=== PATIENT | female | born 1990 | race Caucasian/White ===

== ENCOUNTER 2016-09-29 09:55 | Emergency (ER) | payer OTHER ==
[2016-09-29] MEDS ORDERED: ONDANSETRON 4MG/2ML VIAL (J2405) As Ordered ONE (11:16)
[2016-09-29 11:26] LABS: CONTROL LINE HCG INT CTR LINE PRESENT
[2016-09-29 11:36] LABS: MEAN CORPUSCULAR HEMOGLOBIN 21.3 pg (27.0-33.0); MEAN CORPUSCULAR HGB CONC 29.6 g/dl (32.0-36.5); PLATELET COUNT, AUTOMATED 146 k/mm3 (150-450); RED CELL DISTRIBUTION WIDTH 15.3 % (11.5-14.5)
[2016-09-29 11:42] LABS: ALBUMIN 3.6 GM/DL (3.2-5.2); ALBUMIN/GLOBULIN RATIO 1.06 (1.00-1.93); ALKALINE PHOSPHATASE 121 U/L (45-117); ALT/SGPT 23 U/L (12-78); AMYLASE 23 U/L (25-115); ANION GAP 8 MEQ/L (8-16); AST/SGOT 17 U/L (15-37); BILIRUBIN,DIRECT < 0.1 MG/DL (0.0-0.2); BILIRUBIN,TOTAL 0.4 MG/DL (0.2-1.0); BLOOD UREA NITROGEN 13 MG/DL (7-18); CALCIUM LEVEL 8.4 MG/DL (8.5-10.1); CARBON DIOXIDE LEVEL 25 MEQ/L (21-32); CHLORIDE LEVEL 109 MEQ/L (98-107); CREATININE FOR GFR 0.54 MG/DL (0.55-1.02); GLOMERULAR FILTRATION RATE > 60.0 (>60); GLUCOSE, FASTING 72 MG/DL (70-105); SODIUM LEVEL 142 MEQ/L (136-145)
--- NOTE | 2016-09-29 11:54 | REP ---
CT Head without contrast HISTORY: Trauma COMPARISON: None There is no intraparenchymal hemorrhage, acute infarct, mass or midline shift. The ventricular system is normal in appearance. There is no extra cerebral collection. There is no fracture. The visualized sinuses are clear. IMPRESSION: There is no intracranial lesion. Signed by Abdifatah Car MD 09/29/2016 11:46 A
[2016-09-29 12:20] LABS: BASOPHILS 2 % (0-4); HYPOCHROMASIA 3+; MICROCYTOSIS 2+
[2016-09-29 12:21] LABS: OVALOCYTES 1+
--- NOTE | 2016-09-29 15:02 | EDDOCDS ---
Physician Documentation [facility] Name: Baylee Rodriguez Age: 26 yrs Sex: Female : 1990 Arrival Date: 09/29/2016 Time: 09:55 Bed 12 Private MD: Addison [facility] [place] Disposition: 09/29/16 14:17 Discharged to Home/Self Care. Impression: Syncope and collapse - POTS syndrome. - Condition is Stable. - Discharge Instructions: Syncope. - Medication Reconciliation, Local Pharmacy Hours form. - Follow up: Guido Richards MD; When: Call to arrange an appointment. Follow up: Nigel Azevedo; When: Call to arrange an appointment. - Problem is an acute exacerbation. - Symptoms are resolved. Historical: - Allergies: no known allergies; - Home Meds: 1. Vitamin B-12 1,000 mcg Oral tab 1 unit daily (Last dose: 09/28/2016) 2. Vitamin D Oral 5000 unit daily (Last dose: 09/28/2016) 3. Iron CR Oral 1 tab three times a day (Last dose: 09/28/2016) 4. multivitamin Oral tab 1 tablet daily (Last dose: 09/28/2016) 5. Effexor Oral 1 tab daily (Last dose: 09/28/2016) - PMHx: Orthostatic Hypotension; Irritable bowel syndrome; PTSD; Anxiety; - PSHx: Gastric Bypass; Appendectomy; Cholecystectomy; Paniculectomy; Left Eye Surgery -Lens Implant; - Social history: Smoking status: Patient uses tobacco products, light tobacco smoker. No barriers to communication noted, The patient speaks fluent Filipino. - Family history: Not pertinent. - : The pt / caregiver states he / she is not on anticoagulants. Home medication list is obtained from the patient. - Exposure Risk Screening:: None identified. 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 5 in. (165.10 cm) (R); 10:03 BP 120 / 71 (auto/); ja5 10:04 Pulse 70 MON; Pulse Ox 100% ; ja5 12:07 Pulse 54 MON; Pulse Ox 97% ; ja5 12:08 BP 112 / 61 (auto/); ja5 14:59 BP 110 / 61; Pulse 55; Resp 20; Temp 98.0(O); Pulse Ox 100% on R/A; Pain 0/10; jc4 09:59 Body Mass Index 23.30 (63.50 kg, 165.10 cm) elp MDM: 10:10 NS 0.9% 1000 ml IV at bolus once ordered. sd1 10:10 Sales Demonstrator/Pulse Ox/q 60 min VS ordered. sd1 10:11 Amylase Ordered. EDMS 10:11 Basic Metabolic Profile Ordered. EDMS 10:11 CBC with Diff Ordered. EDMS 10:11 Lipase Ordered. EDMS 10:11 Liver Profile Ordered. EDMS 10:11 HCG,Serum Qualitative Ordered. EDMS 10:11 CT Head Without Contrast Ordered. EDMS 10:11 ECG WITH READING ER PHYS+CARDIAG ordered. EDMS 11:09 Ondansetron 4 mg IVP once ordered. jc4 11:38 [facility] Payment Agreement was scanned into [employer] and attached to record. jp5 11:39 Financial registration complete. jp5 11:39 DIFFERENTIAL NO CHARGE Ordered. EDMS 11:39 PLATELET ESTIMATE Ordered. EDMS 12:50 Amylase Reviewed. sd1 12:50 Basic Metabolic Profile Reviewed. sd1 12:50 CBC with Diff Reviewed. sd1 12:50 Lipase Reviewed. sd1 12:50 Liver Profile Reviewed. sd1 12:50 HCG,Serum Qualitative Reviewed. sd1 12:50 PLATELET ESTIMATE Reviewed. sd1 12:50 CT Head Without Contrast Reviewed. sd1 Administered Medications: 11:11 Drug: NS 0.9% 1000 ml [sodium chloride 0.9 % intravenous solution] Route: IV; Rate: ja5 bolus; Site: left hand; 12:30 Follow up: IV Status: Completed infusion ja5 11:25 Drug: Ondansetron 4 mg [ondansetron HCl 2 mg/mL intravenous solution (2 mL)] Route: ja5 IVP; Site: left hand; Signatures: Dispatcher [employer] EDMS Jessica Balbuena MD MD sd1 Juanita Espinoza RN RN jc4 Willard Wise jp5 Sunshine Mcdonald RN ja5 The chart was reviewed and I authenticate all verbal orders and agree with the evaluation and treatment provided.Attachments: 11:38 [facility] Payment Agreement jp5 MTDD
--- NOTE | 2016-09-29 15:02 | EDDOCDS ---
Nurse's Notes [facility] Name: Baylee Rodriguez Age: 26 yrs Sex: Female : 1990 Arrival Date: 09/29/2016 Time: 09:55 Bed 12 Private MD: Addison [facility] [place] Diagnosis: Syncope and collapse-POTS syndrome Presentation: 09/29 10:01 Presenting complaint: Patient states: "I hit my head". states that when he came [facility] home found patient on the floor, shaking, "looked like she was seizing" States patient was in position and shaking, and took her 5-10 minutes to get up". Adult Sepsis Screening: The patient does not have new or worsening altered mentation. Patient's respiratory rate is less than 22. Systolic blood pressure is greater than 100. Patient has a qSOFA score of 0- Negative Sepsis Screen. Suicide/Homicide risk assessment- the patient denies having any suicidal and/or homicidal ideations and does not present with any other emotional, behavioral or mental health complaints. Status: The patient is a dependent. Transition of care: patient was not received from another setting of care. 10:01 Acuity: STEPHANY Level 3 4 10:01 Method Of Arrival: Walkin/Carried/Asstd 4 Triage Assessment: 10:14 General: Appears uncomfortable. Pain: Pain currently is 7 out of 10 on a pain scale. jc4 The patient is triaged at the bedside. See Assessment in Nurses Notes section of ED record. Neurological: Level of Consciousness is awake, alert. 15:01 Pt Declines HIV testing. 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 Vitamin B-12 1,000 mcg Oral tab 1 unit daily (Last dose: 09/28/2016) 2. Vitamin D Oral 5000 unit daily (Last dose: 09/28/2016) 3. Iron CR Oral 1 tab three times a day (Last dose: 09/28/2016) 4. multivitamin Oral tab 1 tablet daily (Last dose: 09/28/2016) 5. Effexor Oral 1 tab daily (Last dose: 09/28/2016) - PMHx: Orthostatic Hypotension; Irritable bowel syndrome; PTSD; Anxiety; - PSHx: Gastric Bypass; Appendectomy; Cholecystectomy; Paniculectomy; Left Eye Surgery -Lens Implant; - Social history: Smoking status: Patient uses tobacco products, light tobacco smoker. No barriers to communication noted, The patient speaks fluent Iraqi. - Family history: Not pertinent. - : The pt / caregiver states he / she is not on anticoagulants. Home medication list is obtained from the patient. - Exposure Risk Screening:: None identified. Screenin:00 Screening information is obtained from the patient. Fall risk: No risks identified. jc4 Assistance ADL's: requires no assistance with activities of daily living. Abuse/DV Screen: The patient / caregiver reports he/she is: not in a situation that causes fear, pain or injury. Nutritional screening: No deficits noted. Advance Directives: Currently, there is no health care proxy. There is no active DNR order. There is no living will. There is no Power of Examining Officer. home support is adequate. Assessment: 10:30 General: Appears in no apparent distress, Behavior is appropriate for age, cooperative. ja5 Pain: Location: left parietal area Pain currently is 7 out of 10 on a pain scale. Neurological: Level of Consciousness is awake, alert, Oriented to person, place, time, Moves all extremities. Cardiovascular: Capillary refill < 3 seconds Heart tones S1 S2 present Rhythm is sinus rhythm No ectopy. Respiratory: Airway is patent Respiratory pattern is regular, symmetrical, Breath sounds are clear bilaterally. GI: Reports nausea. Derm: Skin is intact, Skin is pale. 11:31 General: Patient awake and alert, laying in stretcher; pain to head has decreased from ja5 a 7/10 to a 2/10. NS IV bolus running to left hand. Family at bedside, call marrero in reach. . 12:10 General: Patient in stretcher, awake and alert, denies dizziness, states that her head ja5 pain is 4/10 but tolerable for her. NS IV bolus running to left hand. Patient states that she has no needs at this time. Call marrero in reach, family at bedside. . 14:21 General: Patient awake and alert, denies dizziness at this time, awaiting discharge. ja5 Call marrero in reach, family at bedside.. 14:59 General: Appears in no apparent distress, Behavior is cooperative, pleasant. Pain: jc4 Denies pain. Neurological: Level of Consciousness is awake, alert, Oriented to person, place, time. Respiratory: Airway is patent Respiratory effort is even, unlabored, Respiratory pattern is regular, symmetrical. Derm: Skin is pink, warm & dry. Vital Signs: 09:59 BP 122 / 66; Pulse 84; Resp 16; Temp 98.1(O); Pulse Ox 100% on R/A; Weight 63.5 kg (R); elp Height 5 ft. 5 in. (165.10 cm) (R); 10:03 BP 120 / 71 (auto/); ja5 10:04 Pulse 70 MON; Pulse Ox 100% ; ja5 12:07 Pulse 54 MON; Pulse Ox 97% ; ja5 12:08 BP 112 / 61 (auto/); ja5 14:59 BP 110 / 61; Pulse 55; Resp 20; Temp 98.0(O); Pulse Ox 100% on R/A; Pain 0/10; jc4 09:59 Body Mass Index 23.30 (63.50 kg, 165.10 cm) elp Vitals: 09:59 Log In Time: September 29, 2016 at 09:57. RN notified that patient meets Red Flag elp criteria. 10:14 Glucose Measurement D-stick deferred by provider. jc4 ED Course: 09:57 Patient visited by Nabila Alva PCA. elp 09:57 Addison [facility] [place] is Private Physician. elp 09:57 Patient moved to Waiting elp 09:58 Liana Desai,RN is Primary Nurse. elp 09:58 Sunshine Mcdonald,RN is Primary Nurse. elp 09:58 Juanita Espinoza, RN is Primary Nurse. elp 09:58 Patient moved to 12 elp 09:58 The patient / caregiver is instructed regarding the plan of care and ED course. jc4 09:59 Patient visited by Nabila Alva PCA. elp 10:00 Jessica Balbuena MD is Attending Physician. sd1 10:03 Triage Initiated jc4 10:06 Primary Nurse role handed off by Liana Desai,RN jc4 10:09 Patient visited by Jessica Balbuena MD. sd1 10:21 EKG done. (by ED staff). Reviewed by Jessica Balbuena MD. ct3 10:22 Accompanied by Family Member, Patient has correct armband on for positive ct3 identification. Placed in gown. Bed in low position. Call light in reach. Side rails up X2. plant health manager on. Pulse ox on. NIBP on. 10:23 Patient visited by Coretta Herr PCA. ct3 11:09 Amylase Sent. jc4 11:09 HCG,Serum Qualitative Sent. jc4 11:09 Basic Metabolic Profile Sent. jc4 11:09 CBC with Diff Sent. jc4 11:09 Lipase Sent. jc4 11:09 Liver Profile Sent. jc4 11:09 Inserted saline lock: 22 gauge in left hand The patient tolerated the procedure well. jc4 11:13 Patient visited by Sunshine Mcdonald RN. ja5 11:13 Missed attempts: 20 gauge X 2 right AC, left AC. ja5 11:34 Patient visited by Sunshine Mcdonald RN. ja5 11:38 [facility] Payment Agreement was scanned into [employer] and attached to record. jp5 12:00 DIFFERENTIAL NO CHARGE Sent. ja5 12:12 Patient visited by Sunshine Mcdonald RN. ja5 12:26 CT Head Without Contrast Returned. EDMS 12:33 Patient visited by Sunshine Mcdonald RN. ja5 13:18 Patient visited by Coretta Herr PCA. ct3 13:48 Patient name changed from Baylee\\S\\\\S\\Heels\\S\\ to Baylee\\S\\Praveena\\S\\Heels. EDMS 14:16 Guido Richards MD is Referral Physician. sd1 14:16 Nigel Azevedo is Referral Physician. sd1 15:00 Discontinued lock intact, bleeding controlled, pressure dressing applied, No jc4 redness/swelling at site. No procedures done that require assistance. Administered Medications: 11:11 Drug: NS 0.9% 1000 ml [sodium chloride 0.9 % intravenous solution] Route: IV; Rate: ja5 bolus; Site: left hand; 12:30 Follow up: IV Status: Completed infusion ja5 11:25 Drug: Ondansetron 4 mg [ondansetron HCl 2 mg/mL intravenous solution (2 mL)] Route: ja5 IVP; Site: left hand; Order Results: Lab Order: Amylase; SPEC'M 09/29/16 11:06 Test: AMYLASE; Value: 23; Range: 25-115; Abnormal: Below low normal; Units: U/L; Status: F Lab Order: Basic Metabolic Profile; [facility]09/29/16 11:06 Test: GLUCOSE, FASTING; Value: 72; Range: 70-105; Units: MG/DL; Status: F Test: BLOOD UREA NITROGEN; Value: 13; Range: 7-18; Units: MG/DL; Status: F Test: CREATININE FOR GFR; Value: 0.54; Range: 0.55-1.02; Abnormal: Below low normal; Units: MG/DL; Status: F Test: SODIUM LEVEL; Range: 136-145; Units: MEQ/L; Status: I Test: POTASSIUM SERUM; Range: 3.5-5.1; Units: MEQ/L; Status: I Test: CHLORIDE LEVEL; Range: 98-107; Units: MEQ/L; Status: I Test: CARBON DIOXIDE LEVEL; Range: 21-32; Units: MEQ/L; Status: I Test: ANION GAP; Range: 8-16; Units: MEQ/L; Status: I Test: CALCIUM LEVEL; Range: 8.5-10.1; Units: MG/DL; Status: I Test: GLOMERULAR FILTRATION RATE; Value: > 60.0; Range: >60; Status: F Test: SODIUM LEVEL; Value: 142; Range: 136-145; Units: MEQ/L; Status: F Test: POTASSIUM SERUM; Value: 4.0; Range: 3.5-5.1; Units: MEQ/L; Status: F Test: CHLORIDE LEVEL; Value: 109; Range: 98-107; Abnormal: Above high normal; Units: MEQ/L; Status: F Test: CARBON DIOXIDE LEVEL; Value: 25; Range: 21-32; Units: MEQ/L; Status: F Test: ANION GAP; Value: 8; Range: 8-16; Units: MEQ/L; Status: F Test: CALCIUM LEVEL; Value: 8.4; Range: 8.5-10.1; Abnormal: Below low normal; Units: MG/DL; Status: F Test Note: ; Units are mL/min/1.73 m2 Chronic Kidney Disease Staging per NKF: Stage I & II GFR >=60 Normal to Mildly Decreased Stage III GFR 30-59 Moderately Decreased Stage IV GFR 15-29 Severely Decreased Stage V GFR <15 Very Little GFR Left ESRD GFR <15 on COMMUNICATIONS MAINTAINER Lab Order: CBC with Diff; SPEC'M 09/29/16 11:07 Test: WHITE BLOOD COUNT; Value: 4.0; Range: 4.0-10.0; Units: K/mm3; Status: F Test: RED BLOOD COUNT; Value: 4.45; Range: 4.00-5.40; Units: M/mm3; Status: F Test: HEMOGLOBIN; Value: 9.5; Range: 12.0-16.0; Abnormal: Below low normal; Units: g/dl; Status: F Test: HEMATOCRIT; Value: 32.1; Range: 36.0-47.0; Abnormal: Below low normal; Units: %; Status: F Test: MEAN CORPUSCULAR VOLUME; Value: 72.0; Range: 80.0-96.0; Abnormal: Below low normal; Units: fl; Status: F Test: MEAN CORPUSCULAR HEMOGLOBIN; Value: 21.3; Range: 27.0-33.0; Abnormal: Below low normal; Units: pg; Status: F Test: MEAN CORPUSCULAR HGB CONC; Value: 29.6; Range: 32.0-36.5; Abnormal: Below low normal; Units: g/dl; Status: F Test: RED CELL DISTRIBUTION WIDTH; Value: 15.3; Range: 11.5-14.5; Abnormal: Above high normal; Units: %; Status: F Test: PLATELET COUNT, AUTOMATED; Value: 146; Range: 150-450; Abnormal: Below low normal; Units: k/mm3; Status: F Test: NEUTROPHILS; Value: 54; Range: 35-75; Units: %; Status: F Test: LYMPHOCYTES; Value: 41; Range: 16-52; Units: %; Status: F Test: MONOCYTES; Value: 2; Range: 0-8; Units: %; Status: F Test: BASOPHILS; Value: 2; Range: 0-4; Units: %; Status: F Test: ATYPICAL LYMPH; Value: 1; Range: 0-5; Units: %; Status: F Test: HYPOCHROMASIA; Value: 3+; Status: F Test: MICROCYTOSIS; Value: 2+; Status: F Test: OVALOCYTES; Value: 1+; Status: F Lab Order: Lipase; SPEC'M 09/29/16 11:06 Test: LIPASE; Value: 68; Range: 73-393; Abnormal: Below low normal; Units: U/L; Status: F Lab Order: Liver Profile; [facility] 09/29/16 11:06 Test: AST/SGOT; Value: 17; Range: 15-37; Units: U/L; Status: F Test: ALT/SGPT; Value: 23; Range: 12-78; Units: U/L; Status: F Test: ALKALINE PHOSPHATASE; Value: 121; Range: 45-117; Abnormal: Above high normal; Units: U/L; Status: F Test: BILIRUBIN,TOTAL; Value: 0.4; Range: 0.2-1.0; Units: MG/DL; Status: F Test: BILIRUBIN,DIRECT; Value: < 0.1; Range: 0.0-0.2; Units: MG/DL; Status: F Test: TOTAL PROTEIN; Value: 7.0; Range: 6.4-8.2; Units: GM/DL; Status: F Test: ALBUMIN; Value: 3.6; Range: 3.2-5.2; Units: GM/DL; Status: F Test: ALBUMIN/GLOBULIN RATIO; Value: 1.06; Range: 1.00-1.93; Status: F Lab Order: HCG,Serum Qualitative; [facility] 09/29/16 11:06 Test: HCG, SERUM QUALITATIVE; Value: NEGATIVE; Range: NEGATIVE; Status: F Lab Order: PLATELET ESTIMATE; [facility] 09/29/16 11:07 Test: PLATELET ESTIMATE; Value: NORMAL; Range: NORMAL; Status: F Radiology Order: CT Head Without Contrast Test: CT Head Without Contrast REASON FOR EXAMINATION: Trauma; CT Head without contrast; ; HISTORY: Trauma; ; COMPARISON: None; ; There is no intraparenchymal hemorrhage, acute infarct, mass or midline shift.; The ventricular system is normal in appearance. There is no extra cerebral; collection. There is no fracture. The visualized sinuses are clear.; ; IMPRESSION: There is no intracranial lesion.; ; ; ; ; Signed by; Abdifatah Car MD 09/29/2016 11:46 A; Outcome: 14:17 Discharge ordered by Provider. sd1 15:01 Discharge Assessment: Patient awake, alert and oriented x 3. No cognitive and/or jc4 functional deficits noted. Patient verbalized understanding of disposition instructions. patient administered narcotics - no. The following High Risk Discharge criteria are identified: None. Discharged to home ambulatory, with family. Condition: stable. Discharge instructions given to patient, Instructed on discharge instructions, follow up and referral plans. Demonstrated understanding of instructions, Pt was receptive of discharge instructions/ teaching. CT Study completed. Property :Personal belongings accompany Pt. 15:01 Patient left the ED. jc4 Signatures: Dispatcher [employer] EDMS Jessica Balbuena MD MD sd1 Juanita Espinoza RN RN jc4 Coretta Herr, OUTBOARD MOTOR INSPECTOR OUTBOARD MOTOR INSPECTOR ct3 Nablia Alva, OUTBOARD MOTOR INSPECTOR OUTBOARD MOTOR INSPECTOR kimberlyp Willard Wise jp5 Sunshine Mcdonald,RN RN ja5 Corrections: (The following items were deleted from the chart) 11:31 10:30 Derm: Skin is intact, Skin is pink, warm & dry. jarrod garay 11:34 11:31 General: jarrod garay 12:21 11:26 Patient visited by Sunshine Mcdonald,LOPEZ. jarrod garay 12:21 12:10 Patient visited by Sunshine Mcdonald,LOPEZ. jarrod garya MTDD
--- NOTE | 2016-09-30 17:39 | ECGEPIP ---
Stationary ECG Study [facility] - ED Test Date: 2016-09-29 Pat Name: SERGE SHEPARD Department: Room: - Gender: F Manager Continuous Improvement: ct : 1990 Requested By: Jessica Balbuena Order Number: [id number] Reading MD: Jessica Balbuena Measurements Intervals [place] Rate: 62 P: 51 CO: 147 QRS: 72 QRSD: 91 T: 46 QT: 398 QTc: 407 Interpretive Statements SINUS RHYTHM WITH SINUS ARRHYTHMIA NO PRIOR FOR COMPARISON Electronically Signed On 09-30-2016 17:39:29 EST by Jessica Balbuena
--- NOTE | 2016-10-01 16:02 | EDDOCDS ---
Physician Documentation [facility] Name: Baylee Rodriguez Age: 26 yrs Sex: Female : 1990 Arrival Date: 09/29/2016 Time: 09:55 Bed 12 Private MD: [place] [facility] [place]: 09/29/16 14:17 Discharged to Home/Self Care. Impression: Syncope and collapse - POTS syndrome. - Condition is Stable. - Discharge Instructions: Syncope. - Medication Reconciliation, Local Pharmacy Hours form. - Follow up: Guido Richards MD; When: Call to arrange an appointment. Follow up: Nigel Azevedo; When: Call to arrange an appointment. - Problem is an acute exacerbation. - Symptoms are resolved. Historical: - Allergies: no known allergies; - Home Meds: 1. Vitamin B-12 1,000 mcg Oral tab 1 unit daily (Last dose: 09/28/2016) 2. Vitamin D Oral 5000 unit daily (Last dose: 09/28/2016) 3. Iron CR Oral 1 tab three times a day (Last dose: 09/28/2016) 4. multivitamin Oral tab 1 tablet daily (Last dose: 09/28/2016) 5. Effexor Oral 1 tab daily (Last dose: 09/28/2016) - PMHx: Orthostatic Hypotension; Irritable bowel syndrome; PTSD; Anxiety; - PSHx: Gastric Bypass; Appendectomy; Cholecystectomy; Paniculectomy; Left Eye Surgery -Lens Implant; - Social history: Smoking status: Patient uses tobacco products, light tobacco smoker. No barriers to communication noted, The patient speaks fluent Moldovan. - Family history: Not pertinent. - : The pt / caregiver states he / she is not on anticoagulants. Home medication list is obtained from the patient. - Exposure Risk Screening:: None identified. 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 5 in. (165.10 cm) (R); 10:03 BP 120 / 71 (auto/); ja5 10:04 Pulse 70 MON; Pulse Ox 100% ; ja5 12:07 Pulse 54 MON; Pulse Ox 97% ; ja5 12:08 BP 112 / 61 (auto/); ja5 14:59 BP 110 / 61; Pulse 55; Resp 20; Temp 98.0(O); Pulse Ox 100% on R/A; Pain 0/10; jc4 09:59 Body Mass Index 23.30 (63.50 kg, 165.10 cm) elp MDM: 10:10 NS 0.9% 1000 ml IV at bolus once ordered. sd1 10:10 Chemical Analyst/Pulse Ox/q 60 min VS ordered. sd1 10:11 Amylase Ordered. EDMS 10:11 Basic Metabolic Profile Ordered. EDMS 10:11 CBC with Diff Ordered. EDMS 10:11 Lipase Ordered. EDMS 10:11 Liver Profile Ordered. EDMS 10:11 HCG,Serum Qualitative Ordered. EDMS 10:11 CT Head Without Contrast Ordered. EDMS 10:11 ECG WITH READING ER PHYS+CARDIAG ordered. EDMS 11:09 Ondansetron 4 mg IVP once ordered. jc4 11:38 [facility] Payment Agreement was scanned into [employer] and attached to record. jp5 11:39 Financial registration complete. jp5 11:39 DIFFERENTIAL NO CHARGE Ordered. EDMS 11:39 PLATELET ESTIMATE Ordered. EDMS 12:50 Amylase Reviewed. sd1 12:50 Basic Metabolic Profile Reviewed. sd1 12:50 CBC with Diff Reviewed. sd1 12:50 Lipase Reviewed. sd1 12:50 Liver Profile Reviewed. sd1 12:50 HCG,Serum Qualitative Reviewed. sd1 12:50 PLATELET ESTIMATE Reviewed. sd1 12:50 CT Head Without Contrast Reviewed. sd1 09/30 10:40 T-Sheet-- Draft Copy was scanned into [employer] and attached to record. gb 10:40 ECG/EKG was scanned into [employer] and attached to record. gb Administered Medications: 09/29 11:11 Drug: NS 0.9% 1000 ml [sodium chloride 0.9 % intravenous solution] Route: IV; Rate: ja5 bolus; Site: left hand; 12:30 Follow up: IV Status: Completed infusion ja5 11:25 Drug: Ondansetron 4 mg [ondansetron HCl 2 mg/mL intravenous solution (2 mL)] Route: ja5 IVP; Site: left hand; Signatures: Dispatcher [employer] Jessica Bui MD MD sd1 Maritza Mayer, Malik Reg Juanita Bowers RN RN jc4 Willard Wise jp5 Sunshine Mcdonald RN ja5 The chart was reviewed and I authenticate all verbal orders and agree with the evaluation and treatment provided.Attachments: 11:38 [facility] Payment Agreement jp5 09/30 10:40 T-Sheet-- Draft Copy gb 10:40 ECG/EKG gb Chart Complete MTDD
--- NOTE | 2016-10-01 16:02 | EDDOCDS ---
[facility]ician [facility]ation [facility] Name: Baylee Rodriguez Age: 26 yrs Sex: Female : 1990 Arrival Date: 09/29/2016 Time: 09:55 Bed 12 Private MD: Addison [facility] [place] Disposition: 09/29/16 14:17 Discharged to Home/Self Care. Impression: Syncope and collapse - POTS syndrome. - Condition is Stable. - Discharge Instructions: Syncope. - Medication Reconciliation, Local Pharmacy Hours form. - Follow up: Guido Richards MD; When: Call to arrange an appointment. Follow up: Nigel Azevedo; When: Call to arrange an appointment. - Problem is an acute exacerbation. - Symptoms are resolved. Historical: - Allergies: no known allergies; - Home Meds: 1. Vitamin B-12 1,000 mcg Oral tab 1 unit daily (Last dose: 09/28/2016) 2. Vitamin D Oral 5000 unit daily (Last dose: 09/28/2016) 3. Iron CR Oral 1 tab three times a day (Last dose: 09/28/2016) 4. multivitamin Oral tab 1 tablet daily (Last dose: 09/28/2016) 5. Effexor Oral 1 tab daily (Last dose: 09/28/2016) - PMHx: Orthostatic Hypotension; Irritable bowel syndrome; PTSD; Anxiety; - PSHx: Gastric Bypass; Appendectomy; Cholecystectomy; Paniculectomy; Left Eye Surgery -Lens Implant; - Social history: Smoking status: Patient uses tobacco products, light tobacco smoker. No barriers to communication noted, The patient speaks fluent Macedonian. - Family history: Not pertinent. - : The pt / caregiver states he / she is not on anticoagulants. Home medication list is obtained from the patient. - Exposure Risk Screening:: None identified. FLOOR NURSE: 09/29 10:14 LMP N/A - control method jc4 Vital Signs: 09:59 BP 122 / 66; Pulse 84; Resp 16; Temp 98.1(O); Pulse Ox 100% on R/A; Weight 63.5 kg / elp 139.99 lbs (R); Height 5 ft. 5 in. (165.10 cm) (R); 10:03 BP 120 / 71 (auto/); ja5 10:04 Pulse 70 MON; Pulse Ox 100% ; ja5 12:07 Pulse 54 MON; Pulse Ox 97% ; ja5 12:08 BP 112 / 61 (auto/); ja5 14:59 BP 110 / 61; Pulse 55; Resp 20; Temp 98.0(O); Pulse Ox 100% on R/A; Pain 0/10; jc4 09:59 Body Mass Index 23.30 (63.50 kg, 165.10 cm) elp MDM: 10:10 NS 0.9% 1000 ml IV at bolus once ordered. sd1 10:10 Paper Sorter/Pulse Ox/q 60 min VS ordered. sd1 10:11 Amylase Ordered. EDMS 10:11 Basic Metabolic Profile Ordered. EDMS 10:11 CBC with Diff Ordered. EDMS 10:11 Lipase Ordered. EDMS 10:11 Liver Profile Ordered. EDMS 10:11 HCG,Serum Qualitative Ordered. EDMS 10:11 CT Head Without Contrast Ordered. EDMS 10:11 ECG WITH READING ER PHYS+CARDIAG ordered. EDMS 11:09 Ondansetron 4 mg IVP once ordered. jc4 11:38 [facility] Payment Agreement was scanned into [employer] and attached to record. jp5 11:39 Financial registration complete. jp5 11:39 DIFFERENTIAL NO CHARGE Ordered. EDMS 11:39 PLATELET ESTIMATE Ordered. EDMS 12:50 Amylase Reviewed. sd1 12:50 Basic Metabolic Profile Reviewed. sd1 12:50 CBC with Diff Reviewed. sd1 12:50 Lipase Reviewed. sd1 12:50 Liver Profile Reviewed. sd1 12:50 HCG,Serum Qualitative Reviewed. sd1 12:50 PLATELET ESTIMATE Reviewed. sd1 12:50 CT Head Without Contrast Reviewed. sd1 09/30 10:40 T-Sheet-- Draft Copy was scanned into [employer] and attached to record. gb 10:40 ECG/EKG was scanned into [employer] and attached to record. gb Administered Medications: 09/29 11:11 Drug: NS 0.9% 1000 ml [sodium chloride 0.9 % intravenous solution] Route: IV; Rate: ja5 bolus; Site: left hand; 12:30 Follow up: IV Status: Completed infusion ja5 11:25 Drug: Ondansetron 4 mg [ondansetron HCl 2 mg/mL intravenous solution (2 mL)] Route: ja5 IVP; Site: left hand; Signatures: Dispatcher [employer] Jessica Bui MD MD sd1 Maritza Mayer, Malik Reg Juanita Bowers RN RN jc4 Willard Wise jp5 Sunshine Mcdonald RN ja5 The chart was reviewed and I authenticate all verbal orders and agree with the evaluation and treatment provided.Attachments: 11:38 [facility] Payment Agreement jp5 09/30 10:40 T-Sheet-- Draft Copy gb 10:40 ECG/EKG gb Chart Complete MTDD
--- NOTE | 2016-10-01 16:02 | EDDOCDS ---
Nurse's Notes [facility] Name: Serge Rodriguez Age: 26 yrs Sex: Female : 1990 Arrival Date: 09/29/2016 Time: 09:55 Bed 12 Private MD: Addison [facility] Diagnosis: Syncope and collapse-POTS syndrome Presentation: 09/29 10:01 Presenting complaint: Patient states: "I hit my head". states that when he came [facility] home found patient on the floor, shaking, "looked like she was seizing" States patient was in position and shaking, and took her 5-10 minutes to get up". Adult Sepsis Screening: The patient does not have new or worsening altered mentation. Patient's respiratory rate is less than 22. Systolic blood pressure is greater than 100. Patient has a qSOFA score of 0- Negative Sepsis Screen. Suicide/Homicide risk assessment- the patient denies having any suicidal and/or homicidal ideations and does not present with any other emotional, behavioral or mental health complaints. Status: The patient is a dependent. Transition of care: patient was not received from another setting of care. 10:01 Acuity: STEPHANY Level 3 4 10:01 Method Of Arrival: Walkin/Carried/Asstd 4 Triage Assessment: 10:14 General: Appears uncomfortable. Pain: Pain currently is 7 out of 10 on a pain scale. jc4 The patient is triaged at the bedside. See Assessment in Nurses Notes section of ED record. Neurological: Level of Consciousness is awake, alert. 15:01 Pt Declines HIV testing. 4 WARPMAN: 10:14 LMP N/A - control method [facility] Historical: - Allergies: no known allergies; - Home Meds: 1. Vitamin B-12 1,000 mcg Oral tab 1 unit daily (Last dose: 09/28/2016) 2. Vitamin D Oral 5000 unit daily (Last dose: 09/28/2016) 3. Iron CR Oral 1 tab three times a day (Last dose: 09/28/2016) 4. multivitamin Oral tab 1 tablet daily (Last dose: 09/28/2016) 5. Effexor Oral 1 tab daily (Last dose: 09/28/2016) - PMHx: Orthostatic Hypotension; Irritable bowel syndrome; PTSD; Anxiety; - PSHx: Gastric Bypass; Appendectomy; Cholecystectomy; Paniculectomy; Left Eye Surgery -Lens Implant; - Social history: Smoking status: Patient uses tobacco products, light tobacco smoker. No barriers to communication noted, The patient speaks fluent Andorran. - Family history: Not pertinent. - : The pt / caregiver states he / she is not on anticoagulants. Home medication list is obtained from the patient. - Exposure Risk Screening:: None identified. Screenin:00 Screening information is obtained from the patient. Fall risk: No risks identified. jc4 Assistance ADL's: requires no assistance with activities of daily living. Abuse/DV Screen: The patient / caregiver reports he/she is: not in a situation that causes fear, pain or injury. Nutritional screening: No deficits noted. Advance Directives: Currently, there is no health care proxy. There is no active DNR order. There is no living will. There is no Power of Clearing Distribution Clerk. home support is adequate. Assessment: 10:30 General: Appears in no apparent distress, Behavior is appropriate for age, cooperative. ja5 Pain: Location: left parietal area Pain currently is 7 out of 10 on a pain scale. Neurological: Level of Consciousness is awake, alert, Oriented to person, place, time, Moves all extremities. Cardiovascular: Capillary refill < 3 seconds Heart tones S1 S2 present Rhythm is sinus rhythm No ectopy. Respiratory: Airway is patent Respiratory pattern is regular, symmetrical, Breath sounds are clear bilaterally. GI: Reports nausea. Derm: Skin is intact, Skin is pale. 11:31 General: Patient awake and alert, laying in stretcher; pain to head has decreased from ja5 a 7/10 to a 2/10. NS IV bolus running to left hand. Family at bedside, call marrero in reach. . 12:10 General: Patient in stretcher, awake and alert, denies dizziness, states that her head ja5 pain is 4/10 but tolerable for her. NS IV bolus running to left hand. Patient states that she has no needs at this time. Call marrero in reach, family at bedside. . 14:21 General: Patient awake and alert, denies dizziness at this time, awaiting discharge. ja5 Call marrero in reach, family at bedside.. 14:59 General: Appears in no apparent distress, Behavior is cooperative, pleasant. Pain: jc4 Denies pain. Neurological: Level of Consciousness is awake, alert, Oriented to person, place, time. Respiratory: Airway is patent Respiratory effort is even, unlabored, Respiratory pattern is regular, symmetrical. Derm: Skin is pink, warm & dry. Vital Signs: 09:59 BP 122 / 66; Pulse 84; Resp 16; Temp 98.1(O); Pulse Ox 100% on R/A; Weight 63.5 kg (R); elp Height 5 ft. 5 in. (165.10 cm) (R); 10:03 BP 120 / 71 (auto/); ja5 10:04 Pulse 70 MON; Pulse Ox 100% ; ja5 12:07 Pulse 54 MON; Pulse Ox 97% ; ja5 12:08 BP 112 / 61 (auto/); ja5 14:59 BP 110 / 61; Pulse 55; Resp 20; Temp 98.0(O); Pulse Ox 100% on R/A; Pain 0/10; jc4 09:59 Body Mass Index 23.30 (63.50 kg, 165.10 cm) elp Vitals: 09:59 Log In Time: September 29, 2016 at 09:57. RN notified that patient meets Red Flag elp criteria. 10:14 Glucose Measurement D-stick deferred by provider. jc4 ED Course: 09:57 Patient visited by Nabila Alva PCA. elp 09:57 Addison [facility] is Private Physician. elp 09:57 Patient moved to Waiting elp 09:58 Liana Desai,RN is Primary Nurse. elp 09:58 Sunshine Mcdonald,RN is Primary Nurse. elp 09:58 Juanita Espinoza, RN is Primary Nurse. elp 09:58 Patient moved to 12 elp 09:58 The patient / caregiver is instructed regarding the plan of care and ED course. jc4 09:59 Patient visited by Nabila Alva PCA. elp 10:00 Jessica Balbuena MD is Attending Physician. sd1 10:03 Triage Initiated jc4 10:06 Primary Nurse role handed off by Liana Desai,RN jc4 10:09 Patient visited by Jessica Balbuena MD. sd1 10:21 EKG done. (by ED staff). Reviewed by Jessica Balbuena MD. ct3 10:22 Accompanied by Family Member, Patient has correct armband on for positive ct3 identification. Placed in gown. Bed in low position. Call light in reach. Side rails up X2. senior credit officer on. Pulse ox on. NIBP on. 10:23 Patient visited by Coretta Herr PCA. ct3 11:09 Amylase Sent. jc4 11:09 HCG,Serum Qualitative Sent. jc4 11:09 Basic Metabolic Profile Sent. jc4 11:09 CBC with Diff Sent. jc4 11:09 Lipase Sent. jc4 11:09 Liver Profile Sent. jc4 11:09 Inserted saline lock: 22 gauge in left hand The patient tolerated the procedure well. jc4 11:13 Patient visited by Sunshine Mcdonald RN. ja5 11:13 Missed attempts: 20 gauge X 2 right AC, left AC. ja5 11:34 Patient visited by Sunshine Mcdonald RN. ja5 11:38 [facility] Payment Agreement was scanned into [employer] and attached to record. jp5 12:00 DIFFERENTIAL NO CHARGE Sent. ja5 12:12 Patient visited by Sunshine Mcdonald RN. ja5 12:26 CT Head Without Contrast Returned. EDMS 12:33 Patient visited by Sunshine Mcdonald RN. ja5 13:18 Patient visited by Coretta Herr PCA. ct3 13:48 Patient name changed from Serge\\S\\\\S\\Heels\\S\\ to Serge\\S\\Praveena\\S\\Heels. EDMS 14:16 Guido Richards MD is Referral Physician. sd1 14:16 Nigel Azevedo is Referral Physician. sd1 15:00 Discontinued lock intact, bleeding controlled, pressure dressing applied, No jc4 redness/swelling at site. No procedures done that require assistance. 09/30 10:40 T-Sheet-- Draft Copy was scanned into [employer] and attached to record. gb 10:40 ECG/EKG was scanned into [employer] and attached to record. gb 18:15 EKG-ADULT Returned. EDMS Administered Medications: 09/29 11:11 Drug: NS 0.9% 1000 ml [sodium chloride 0.9 % intravenous solution] Route: IV; Rate: ja5 bolus; Site: left hand; 12:30 Follow up: IV Status: Completed infusion ja5 11:25 Drug: Ondansetron 4 mg [ondansetron HCl 2 mg/mL intravenous solution (2 mL)] Route: ja5 IVP; Site: left hand; Order Results: Lab Order: Amylase; SPEC'M 09/29/16 11:06 Test: AMYLASE; Value: 23; Range: 25-115; Abnormal: Below low normal; Units: U/L; Status: F Lab Order: Basic Metabolic Profile; SPEC'M 09/29/16 11:06 Test: GLUCOSE, FASTING; Value: 72; Range: 70-105; Units: MG/DL; Status: F Test: BLOOD UREA NITROGEN; Value: 13; Range: 7-18; Units: MG/DL; Status: F Test: CREATININE FOR GFR; Value: 0.54; Range: 0.55-1.02; Abnormal: Below low normal; Units: MG/DL; Status: F Test: SODIUM LEVEL; Range: 136-145; Units: MEQ/L; Status: I Test: POTASSIUM SERUM; Range: 3.5-5.1; Units: MEQ/L; Status: I Test: CHLORIDE LEVEL; Range: 98-107; Units: MEQ/L; Status: I Test: CARBON DIOXIDE LEVEL; Range: 21-32; Units: MEQ/L; Status: I Test: ANION GAP; Range: 8-16; Units: MEQ/L; Status: I Test: CALCIUM LEVEL; Range: 8.5-10.1; Units: MG/DL; Status: I Test: GLOMERULAR FILTRATION RATE; Value: > 60.0; Range: >60; Status: F Test: SODIUM LEVEL; Value: 142; Range: 136-145; Units: MEQ/L; Status: F Test: POTASSIUM SERUM; Value: 4.0; Range: 3.5-5.1; Units: MEQ/L; Status: F Test: CHLORIDE LEVEL; Value: 109; Range: 98-107; Abnormal: Above high normal; Units: MEQ/L; Status: F Test: CARBON DIOXIDE LEVEL; Value: 25; Range: 21-32; Units: MEQ/L; Status: F Test: ANION GAP; Value: 8; Range: 8-16; Units: MEQ/L; Status: F Test: CALCIUM LEVEL; Value: 8.4; Range: 8.5-10.1; Abnormal: Below low normal; Units: MG/DL; Status: F Test Note: ; Units are mL/min/1.73 m2 Chronic Kidney Disease Staging per NKF: Stage I & II GFR >=60 Normal to Mildly Decreased Stage III GFR 30-59 Moderately Decreased Stage IV GFR 15-29 Severely Decreased Stage V GFR <15 Very Little GFR Left ESRD GFR <15 on BASIN TENDER Lab Order: CBC with Diff; RIKY'M 09/29/16 11:07 Test: WHITE BLOOD COUNT; Value: 4.0; Range: 4.0-10.0; Units: K/mm3; Status: F Test: RED BLOOD COUNT; Value: 4.45; Range: 4.00-5.40; Units: M/mm3; Status: F Test: HEMOGLOBIN; Value: 9.5; Range: 12.0-16.0; Abnormal: Below low normal; Units: g/dl; Status: F Test: HEMATOCRIT; Value: 32.1; Range: 36.0-47.0; Abnormal: Below low normal; Units: %; Status: F Test: MEAN CORPUSCULAR VOLUME; Value: 72.0; Range: 80.0-96.0; Abnormal: Below low normal; Units: fl; Status: F Test: MEAN CORPUSCULAR HEMOGLOBIN; Value: 21.3; Range: 27.0-33.0; Abnormal: Below low normal; Units: pg; Status: F Test: MEAN CORPUSCULAR HGB CONC; Value: 29.6; Range: 32.0-36.5; Abnormal: Below low normal; Units: g/dl; Status: F Test: RED CELL DISTRIBUTION WIDTH; Value: 15.3; Range: 11.5-14.5; Abnormal: Above high normal; Units: %; Status: F Test: PLATELET COUNT, AUTOMATED; Value: 146; Range: 150-450; Abnormal: Below low normal; Units: k/mm3; Status: F Test: NEUTROPHILS; Value: 54; Range: 35-75; Units: %; Status: F Test: LYMPHOCYTES; Value: 41; Range: 16-52; Units: %; Status: F Test: MONOCYTES; Value: 2; Range: 0-8; Units: %; Status: F Test: BASOPHILS; Value: 2; Range: 0-4; Units: %; Status: F Test: ATYPICAL LYMPH; Value: 1; Range: 0-5; Units: %; Status: F Test: HYPOCHROMASIA; Value: 3+; Status: F Test: MICROCYTOSIS; Value: 2+; Status: F Test: OVALOCYTES; Value: 1+; Status: F Lab Order: Lipase; [facility] 09/29/16 11:06 Test: LIPASE; Value: 68; Range: 73-393; Abnormal: Below low normal; Units: U/L; Status: F Lab Order: Liver Profile; [facility] 09/29/16 11:06 Test: AST/SGOT; Value: 17; Range: 15-37; Units: U/L; Status: F Test: ALT/SGPT; Value: 23; Range: 12-78; Units: U/L; Status: F Test: ALKALINE PHOSPHATASE; Value: 121; Range: 45-117; Abnormal: Above high normal; Units: U/L; Status: F Test: BILIRUBIN,TOTAL; Value: 0.4; Range: 0.2-1.0; Units: MG/DL; Status: F Test: BILIRUBIN,DIRECT; Value: < 0.1; Range: 0.0-0.2; Units: MG/DL; Status: F Test: TOTAL PROTEIN; Value: 7.0; Range: 6.4-8.2; Units: GM/DL; Status: F Test: ALBUMIN; Value: 3.6; Range: 3.2-5.2; Units: GM/DL; Status: F Test: ALBUMIN/GLOBULIN RATIO; Value: 1.06; Range: 1.00-1.93; Status: F Lab Order: HCG,Serum Qualitative; 09/29/16 11:06 Test: HCG, SERUM QUALITATIVE; Value: NEGATIVE; Range: NEGATIVE; Status: F Lab Order: PLATELET ESTIMATE; 09/29/16 11:07 Test: PLATELET ESTIMATE; Value: NORMAL; Range: NORMAL; Status: F Radiology Order: CT Head Without Contrast Test: CT Head Without Contrast REASON FOR EXAMINATION: Trauma; CT Head without contrast; ; HISTORY: Trauma; ; COMPARISON: None; ; There is no intraparenchymal hemorrhage, acute infarct, mass or midline shift.; The ventricular system is normal in appearance. There is no extra cerebral; collection. There is no fracture. The visualized sinuses are clear.; ; IMPRESSION: There is no intracranial lesion.; ; ; ; ; Signed by; Abdifatah Car MD 09/29/2016 11:46 A; Radiology Order: EKG-ADULT Test: EKG-ADULT REASON FOR EXAMINATION: Syncope; Stationary ECG Study; [facility] - ED; ; Test Date: 2016-09-29; Pat Name: SERGE RODRIGUEZ Department:; Room: -; Gender: F Senior Communications Engineer: ct; : 1990 Requested By: Jessica Balbuena; Order Number: [id number] Reading MD: Jessica Balbuena; Measurements; Intervals [place]; Rate: 62 P: 51; HI: 147 QRS: 72; QRSD: 91 T: 46; QT: 398; QTc: 407; Interpretive Statements; SINUS RHYTHM WITH SINUS ARRHYTHMIA; NO PRIOR FOR COMPARISON; Electronically Signed On 09-30-2016 17:39:29 EST by Jessica Balbuena; Outcome: 14:17 Discharge ordered by Provider. sd1 15:01 Discharge Assessment: Patient awake, alert and oriented x 3. No cognitive and/or jc4 functional deficits noted. Patient verbalized understanding of disposition instructions. patient administered narcotics - no. The following High Risk Discharge criteria are identified: None. Discharged to home ambulatory, with family. Condition: stable. Discharge instructions given to patient, Instructed on discharge instructions, follow up and referral plans. Demonstrated understanding of instructions, Pt was receptive of discharge instructions/ teaching. CT Study completed. Property :Personal belongings accompany Pt. 15:01 Patient left the ED. jc4 Signatures: Dispatcher [employer] EDMS Jessica Balbuena MD MD sd1 Maritza Mayer, Reg Reg Juanita Bowers RN RN jc4 Coretta Herr, SHELL MOLDER SHELL MOLDER ct3 Nabila Alva, SHELL MOLDER SHELL MOLDER elp Willard Wise jp5 Sunshine Mcdonald,RN RN ja5 Corrections: (The following items were deleted from the chart) 11:31 10:30 Derm: Skin is intact, Skin is pink, warm & dry. jarrod garay 11:34 11:31 General: jarrod garay 12:21 11:26 Patient visited by Sunshine Mcdonald,LOPEZ. jarrod garay 12:21 12:10 Patient visited by Sunshine Mcdonald RN. ja5 ja5 Chart Complete MTDD
== END 2016-09-29 15:01 | disposition home or self-care (01) ==
LOC: M ED 09:55
DX: I95.1 Orthostatic hypotension (principal); R55 Syncope and collapse; F43.10 Post-traumatic stress disorder, unspecified; F41.9 Anxiety disorder, unspecified; Z98.84 Bariatric surgery status; F17.210 Nicotine dependence, cigarettes, uncomplicated; Z79.899 Other long term (current) drug therapy
CPT/HCPCS: 36415; 70450; 80048; 80076; 82150; 83690; 84703; 85025; 93005; 93041; 96361; 96374; 99285; J2405

== ENCOUNTER 2017-02-07 07:48 | Emergency (ER) | payer OTHER ==
[~2017-02-07] VITALS: Ht 162.6 cm; Wt 58.2 kg
[2017-02-07] MEDS ORDERED: NS 1,000 ML IV ONE (08:00)
[2017-02-07] MEDS ORDERED: MIDO5TA PO (08:04)
[2017-02-07] MEDS ORDERED: IBUPROFEN 600 MG TAB As Ordered ONE (08:37)
[2017-02-07 08:43] LABS: BASO % 0.4 % (0.0-1.0); EOS # 0.1 K/mm3 (0.0-0.50); EOS % 2.5 % (0.0-3.0); LARGE UNSTAINED CELL # 0.1 K/mm3 (0.0-0.4); LARGE UNSTAINED CELL % 2.4 % (0.0-4.0); LYMPH # 1.6 K/mm3 (1.5-6.5); LYMPH % 29.3 % (24.0-44.0); MEAN CORPUSCULAR HEMOGLOBIN 20.6 pg (27.0-33.0); MEAN CORPUSCULAR HGB CONC 30.2 g/dl (32.0-36.5); MEAN CORPUSCULAR VOLUME 68.3 fl (80.0-96.0); MONO # 0.3 K/mm3 (0.0-0.8); MONO % 5.5 % (0.0-5.0); NEUTROPHILS % 59.9 % (36.0-66.0); PLATELET COUNT, AUTOMATED 251 k/mm3 (150-450); RED CELL DISTRIBUTION WIDTH 16.3 % (11.5-14.5); WHITE BLOOD COUNT 5.1 K/mm3 (4.0-10.0)
[2017-02-07 08:45] LABS: ADD MORPHOLOGY? YES
[2017-02-07] MEDS ORDERED: IBUPROFEN 600 MG TAB PO ONE (08:45)
[2017-02-07 09:04] LABS: HYPOCHROMASIA 2+; MICROCYTOSIS 2+; OVALOCYTES 1+
[2017-02-07 09:05] LABS: CONTROL LINE HCG INT CTR LINE PRESENT
--- NOTE | 2017-02-07 09:43 | REP ---
Head CT without contrast: History: Syncope. Comparison study: September 29, 2016. CT findings: Bone window settings demonstrate an intact bony calvarium. There is no evidence of skull fracture or incidental bony calvarial lesion. The visualized paranasal sinuses appear clear. No intraorbital abnormality is seen. On soft tissue window setting images; the lateral, third, and fourth ventricles are normal in size and position. Hernández-white differentiation pattern is normal above and below the tentorium. There are is no evidence of intracranial hemorrhage. No mass, edema, infarction, or midline shift is seen. No extra-axial fluid collection is appreciated. Impression: Negative noncontrast head CT. Signed by Adam Aguilar MD 02/07/2017 09:34 A
[2017-02-07 09:46] LABS: ANION GAP 9 MEQ/L (8-16); BLOOD UREA NITROGEN 7 MG/DL (7-18); CALCIUM LEVEL 8.2 MG/DL (8.5-10.1); CARBON DIOXIDE LEVEL 25 MEQ/L (21-32); CHLORIDE LEVEL 111 MEQ/L (98-107); CREATININE FOR GFR 0.56 MG/DL (0.55-1.02); FREE T4 0.99 NG/DL (0.76-1.46); GLOMERULAR FILTRATION RATE > 60.0 (>60); GLUCOSE, FASTING 73 MG/DL (70-105); POTASSIUM SERUM 3.7 MEQ/L (3.5-5.1); SODIUM LEVEL 145 MEQ/L (136-145)
--- NOTE | 2017-02-07 09:46 | REP ---
Right knee series: Five views. History: Injury in a fall down stairs. Findings: Five views of the right knee demonstrate normal bones, joints, and soft tissues. No fracture subluxation or joint effusion is evident. Impression: Negative right knee series. Signed by Adam Aguilar MD 02/07/2017 09:37 A
[2017-02-07 11:03] VITALS: BP 116/79
--- NOTE | 2017-02-09 08:42 | ECGEPIP ---
Stationary ECG Study [facility] - ED Test Date: 2017-02-07 Pat Name: SERGE SHEPARD Department: Room: - Gender: F Mining Analyst: rn : 1990 Requested By: Suzanna Koch Order Number: [id number] Reading MD: Jessica Balbuena Measurements Intervals [place] Rate: 95 P: 65 IN: 151 QRS: 73 QRSD: 89 T: 52 QT: 355 QTc: 447 Interpretive Statements SINUS RHYTHM INCREASED RATE 09/29/16 Electronically Signed On 02-09-2017 8:41:56 EDT by Jessica Balbuena
== END 2017-02-07 11:26 | disposition home or self-care (01) ==
LOC: M ED 08:54
DX: S83.91XA Sprain of unspecified site of right knee, initial encounter (principal); D64.9 Anemia, unspecified; I49.8 Other specified cardiac arrhythmias; W10.8XXA Fall (on) (from) other stairs and steps, initial encounter; Y92.89 Other specified places as the place of occurrence of the external cause; Y93.01 Activity, walking, marching and hiking; Y99.9 Unspecified external cause status

== ENCOUNTER 2017-06-07 17:25 | Emergency (ER) | payer OTHER, SELFPAY ==
[~2017-06-07] VITALS: Ht 162.6 cm; Wt 64.2 kg
[~2017-06-07 17:25] MED LIST: MIDO5TA PO
[2017-06-07 17:27] VITALS: BP 128/77
[2017-06-07] MEDS ORDERED: MULT1CHW43 PO (17:55)
== END 2017-06-07 19:36 | disposition home or self-care (01) ==
LOC: M ED 17:25
DX: O20.9 Hemorrhage in early pregnancy, unspecified (principal); Z3A.01 Less than 8 weeks gestation of pregnancy; O99.341 Other mental disorders complicating pregnancy, first trimester; F41.9 Anxiety disorder, unspecified; F33.9 Major depressive disorder, recurrent, unspecified; O99.841 Bariatric surgery status complicating pregnancy, first trimester

== ENCOUNTER 2017-07-09 11:12 | Emergency (ER) | payer SELFPAY ==
[~2017-07-09] VITALS: Ht 162.6 cm; Wt 62.7 kg
[~2017-07-09 11:12] MED LIST changes: +MULT1CHW43 PO
[2017-07-09] MEDS ORDERED: MIDO5TA PO (11:26)
[2017-07-09] MEDS ORDERED: FERR1TAB8 PO (11:26)
[2017-07-09 13:00] LABS: BASO % 0.4 % (0.0-1.0); EOS # 0.1 10^3/uL (0.0-0.50); EOS % 1.1 % (0.0-3.0); IMMATURE GRANULOCYTE % 0.2 % (0-0); LYMPH # 1.5 10^3/uL (1.5-6.5); LYMPH % 27.4 % (24.0-44.0); MEAN CORPUSCULAR HEMOGLOBIN 18.4 pg (27.0-33.0); MEAN CORPUSCULAR HGB CONC 27.1 g/dl (32.0-36.5); MEAN CORPUSCULAR VOLUME 67.9 fl (80.0-96.0); MONO # 0.4 10^3/uL (0.0-0.8); NEUTROPHILS # 3.5 10^3/uL (1.8-7.7); NEUTROPHILS % 63.9 % (36.0-66.0); PLATELET COUNT, AUTOMATED 237 10^3/uL (150-450); RED CELL DISTRIBUTION WIDTH 18.2 % (11.5-14.5); WHITE BLOOD COUNT 5.4 10^3/uL (4.0-10.0)
[2017-07-09 13:12] LABS: CONTROL LINE HCG INT CTR LINE PRESENT
[2017-07-09 13:16] LABS: METHADONE URINE NEGATIVE (NEGATIVE)
[2017-07-09 13:27] LABS: ANION GAP 8 MEQ/L (8-16); BLOOD UREA NITROGEN 8 MG/DL (7-18); CALCIUM LEVEL 8.4 MG/DL (8.5-10.1); CARBON DIOXIDE LEVEL 26 MEQ/L (21-32); CHLORIDE LEVEL 107 MEQ/L (98-107); CREATININE FOR GFR 0.53 MG/DL (0.55-1.02); GLOMERULAR FILTRATION RATE > 60.0 (>60); GLUCOSE, FASTING 76 MG/DL (70-105); POTASSIUM SERUM 3.7 MEQ/L (3.5-5.1); SODIUM LEVEL 141 MEQ/L (136-145)
[2017-07-09 13:29] LABS: PERCENT SATURATION 2.6 % (13.2-45.0)
[2017-07-09 13:52] VITALS: BP 114/63
--- NOTE | 2017-07-10 08:27 | ECGEPIP ---
Stationary ECG Study [facility] - ED Test Date: 2017-07-09 Pat Name: SERGE SHEPARD Department: Room: - Gender: F Record Keeper: kristina : 1990 Requested By: SERGIO Vasquez Order Number: [id number] Reading MD: Jessica Balbuena Measurements Intervals [place] Rate: 94 P: 64 MO: 151 QRS: 70 QRSD: 95 T: 42 QT: 337 QTc: 423 Interpretive Statements SINUS RHYTHM SIMILAR 02/07/17 Electronically Signed On 07-10-2017 8:27:16 EST by Jessica Balbuena
== END 2017-07-09 14:16 | disposition home or self-care (01) ==
LOC: EDBD 11:12 → M ED 11:12
DX: R55 Syncope and collapse (principal); D50.9 Iron deficiency anemia, unspecified; I49.8 Other specified cardiac arrhythmias; F12.10 Cannabis abuse, uncomplicated

== ENCOUNTER 2017-08-18 01:15 | Emergency (ER) | payer MEDICAID, SELFPAY | END 2017-08-18 03:50 | disposition left against medical advice (07) | LOC: M ED 03:50 | DX: Z53.29 Procedure and treatment not carried out because of patient's decision for other reasons (principal) ==

== ENCOUNTER 2017-08-24 13:55 | Emergency (ER) | payer MEDICAID, SELFPAY ==
[2017-08-24 16:14] LABS: HEMATOCRIT 32.9 % (36.0-47.0)
== END 2017-08-24 17:21 | disposition home or self-care (01) ==
LOC: M ED 13:55
DX: R55 Syncope and collapse (principal); F17.200 Nicotine dependence, unspecified, uncomplicated; Z98.84 Bariatric surgery status
CPT/HCPCS: 85014